=== PATIENT | male | born 1955 | race Two or more races ===

== ENCOUNTER 2016-12-23 06:15 | Inpatient (IN) | payer OTHER ==
[2016-12-23] VITALS (14 sets, daily range): BP systolic 109–152; BP diastolic 65–80
[~2016-12-23] VITALS: Ht 165.1 cm; Wt 77.1 kg
[2016-12-23] MEDS ORDERED: METFORMIN HCL500 M1 ORAL (06:37)
[2016-12-23] MEDS ORDERED: ceFAZolin 2gm/50ml Premix 50 ML IVPB ONE (07:00)
[2016-12-23] MEDS ORDERED: ceFAZolin sod 2 GM in D5W 110 ML IVP ONE (07:00)
[2016-12-23] MEDS ORDERED: Thrombin 5000 units TOPIC ONE ×2 (07:17→12:03)
[2016-12-23] MEDS ORDERED: Bupivacaine w/Epi 0.5% 30ml Vial INJ ONE (07:18)
[2016-12-23] MEDS ORDERED: Heparin 5000 units/ml inj ONE (07:18)
[2016-12-23] MEDS ORDERED: Gelfoam Absorbable 1gm powder pkt TOPIC ONE ×2 (07:19→12:10)
[2016-12-23] MEDS ORDERED: Bacitracin 50000 Units Vial ONE (07:19)
[2016-12-23] MEDS ORDERED: Thrombin 5000 units spray kit TOPIC ONE ×2 (07:19→12:03)
[2016-12-23] MEDS ORDERED: LR 1000ml ONE (08:30)
[2016-12-23] MEDS ORDERED: NS Irrig 1000ml ONE (08:30)
[2016-12-23] MEDS ORDERED: fentaNYL 100 mcg/2 mL IV ONE (08:30)
[2016-12-23] MEDS ORDERED: Propofol 10mg/ml 100ml btl IV ONE (08:30)
[2016-12-23] MEDS ORDERED: Zemuron 50mg/5ml Inj IV ONE (08:30)
[2016-12-23] MEDS ORDERED: Sterile Water Irrig 1000ml IRRIG ONE (08:30)
[2016-12-23] MEDS ORDERED: Midazolam 2mg/2ml Inj ONE (08:30)
--- NOTE | 2016-12-23 08:48 | Anethesia Preoperative Eval ---
Anesthesia Pre-op PMH/ROS General Date of Evaluation: Dec 23, 2016 Time of Evaluation: 08:00 Anesthesiologist: Kellen ASA Score: ASA 3 Mallampati Score Class I : Soft palate, uvula, fauces, pillars visible Class II: Soft palate, uvula, fauces visible Class III: Soft palate, base of uvula visible Class IV: Only hard plate visible Mallampati Classification: Class II Surgeon: Kelli Diagnosis: Lumbar radiculopaphy Surgical Procedure: ALIF, PLIF Family History: no anesthesia problems Allergies: Coded Allergies: No Known Allergies (Unverified , 12/22/16) Medications: see eMAR Past Medical History Cardiovascular: Denies: CAD, HTN, DC, arrhythmia, other, valve dz Pulmonary: Denies: COPD, RADHA, asthma, other Gastrointestinal/Genitourinary: Denies: CRI, ESRD, GERD, other Neurologic/Psychiatric: Denies: CVA, TIA, dementia, depression/anxiety, other Endocrine: Reports: DM, Denies: hypothyroidism, other, steroids HEENT: Denies: [place] (L), [place] (R), cataract (L), cataract (R), glaucoma, other Hematology/Immune: Denies: DVT, anemia, bleeding disorder, other Musculoskeletal/Integumentary: Denies: DDD, DJD, OA, RA, edema, other PMH Narrative: DM PSxH Narrative: Cholecystectomy Anesthesia Pre-op Phys. Exam Physician Exam Last Vital Signs Date Time Temp Pulse Resp B/P Pulse Ox O2 Delivery O2 Flow Rate FiO2 12/23/16 06:50 98.3 74 18 140/75 98 Room Air Constitutional: NAD Neurologic: CN 2-12 intact Cardiovascular: RRR, no M/R/G Respiratory: CTA Gastrointestinal: S/NT/ND Airway Exam Mallampati Score: Class II MO: full ROM: full Dentures: lower, upper Anesthesia Pre-op A/P Labs WNL Accucheck 114 Studies Pre-op Studies: EKG - NSR Risk Assessment & Plan Assessment: Diabetic male for ALIF, PLIF L5-S1 Plan: GETA, SedLine Status Change Before Surgery: No Pre-Antibiotics Drug: Ancef Given Within 1 Hr of Incision: Yes Time Given: 08:45 TO PEÑA M.D. Dec 23, 2016 08:48
--- NOTE | 2016-12-23 08:48 | Immediate Post-Op Evaluation ---
Immediate Post-Op Evalulation Immediate Post-Op Evalulation Procedure: ALIF, PLTAMMY Date of Evaluation: Dec 23, 2016 Time of Evaluation: 14:52 IV Fluids: 2800 Estimated Blood Loss: 250 Urinary Output: 100 Blood Pressure Systolic: 109 Blood Pressure Diastolic: 66 Pulse Rate: 92 Respiratory Rate: 18 O2 Sat by Pulse Oximetry: 100 Temperature (Fahrenheit): 97.5 Pain Score (1-10): 0 Nausea: No Vomiting: No Complications No complication Patient Status: awake, patent, extubated, none Hydration Status: adequate Drug: Ancef Given Within 1 Hr of Incision: Yes Time Given: 08:45 TO PEÑA M.D. Dec 23, 2016 08:48
[2016-12-23] MEDS ORDERED: LR 1000ml 1,000 ML IVLG SCH (09:41)
[2016-12-23] MEDS ORDERED: LR 1000ml 1,000 ML IV SCH (09:45)
[2016-12-23] MEDS ORDERED: Meperidine 25mg/0.5ml Inj (FOR RIGORS ONLY) IV PRN (09:45)
[2016-12-23] MEDS ORDERED: LORazepam Inj 2mg/ml 1ml IV PRN (09:45)
[2016-12-23] MEDS ORDERED: Hydromorphone 0.5mg/0.5ml inj IVP PRN (09:45)
[2016-12-23] MEDS ORDERED: DiphenhydrAMINE 50mg/ml Inj IVP PRN (09:45)
--- NOTE | 2016-12-23 09:49 | Pre-Procedure Note/Attestation ---
Pre-Procedure Note/Attestation Complete Prior to Procedure Procedure Narrative: L5S1 ant / post fusion with decompression Indications for Procedure Pre-Operative Diagnosis: L5S1 instable spondylolisthesis with BLE L>R radiculopathy Attestation I attest that I discussed the nature of the procedure; its benefits; risks and complications; and alternatives (and the risks and benefits of such alternatives ), prior to the procedure, with the patient (or the patient's legal utility sales representative). I attest that, if there was a reasonable possibility of needing a blood transfusion, the patient (or the patient's legal utility sales representative) was given the [facility] standardized written summary, pursuant to the Alexander Zahra Blood Safety Act ([place] Health and Safety Code # 1645, as amended). I attest that I re-evaluated the patient just prior to the surgery and that there has been no change in the patient's H&P, except as documented below: ROC RODRIGUEZ Dec 23, 2016 09:49
--- NOTE | 2016-12-23 09:51 | Brief Operative Note ---
Immediate Post Operative Note Operative Note Pre-op Diagnosis: L5S1 instable spondylolisthesis with BLE L>R radiculopathy Procedure: L5S1 ant post fusion with L decompression Post-op Diagnosis: same as pre-op Findings: consistent w/pre-op dx studies Surgeon: jose f Additional Surgeons: cely Anesthesiologist: cary Anesthesia: general Specimen: none Complications: none Condition: stable Estimated Blood Loss: volume - 250 Drains: none Implant(s) used?: Yes - alphateck cage/plate/ pedicle screws ROC RODRIGUEZ Dec 23, 2016 09:51
[2016-12-23] MEDS ORDERED: Norco 5mg/325mg tab ORAL PRN (10:00)
[2016-12-23] MEDS ORDERED: traMADol 50mg tab ORAL PRN (10:00)
[2016-12-23] MEDS ORDERED: Norco 7.5mg/325mg tab ORAL PRN ×2 (10:00)
[2016-12-23] MEDS ORDERED: HYDROmorphone 1mg/ml Carpuject SUBQ PRN (10:00)
[2016-12-23] MEDS ORDERED: Metoclopramide 10mg/2ml Inj IVP PRN (10:00)
--- NOTE | 2016-12-23 15:54 | Diagnostic Imaging Report ---
Indications: lumbar anterior-posterior fusion for low back and bilateral lower extremity pain Technique: Above procedure including fluoroscopy performed by Dr. Pereira. Portable intraoperative AP, PA, and lateral spot film images of lower lumbar spine obtained. Total fluoroscopy time 69.8 seconds. Dose area product 0.97 mgy-meter squared Findings: Comparison: None Initial image demonstrates localizing needle overlying the L5-S1 disc space. L5 vertebral body is subluxed anteriorly on S1 by less than 1 cm. L5-S1 disc space narrowing with marginal osteophyte formation. Subsequent images demonstrate placement of fusion hardware within and across the anterior margins of the L5-S1 disc space, then placement of bilateral pedicle screws at L5 and S1, bridged by longitudinal rods bilaterally. IMPRESSION: Intraoperative changes as described
[2016-12-23] MEDS: D5 1/2NS 1,000 ML IV SCH ×2 (17:25→23:59)
[2016-12-23] MEDS: ceFAZolin sod 1 GM in D5W 55 ML IV SCH (17:26)
[2016-12-23] MEDS: Pericolace tab ORAL SCH (18:00)
[2016-12-23] MEDS: Docusate 100mg cap ORAL SCH (18:00)
--- NOTE | 2016-12-23 18:15 | Operative Note - Dictated ---
DATE OF OPERATION: 12/23/2016 SURGEON: Sorin Pereira M.D. VASCULAR ACCESS SURGEON: Nitish Baires M.D. ANESTHESIOLOGIST: Alexander Foreman M.D. ANESTHESIA TYPE: General endotracheal anesthesia. PREOPERATIVE DIAGNOSIS: Spondylolisthesis, unstable L5-S1 with bilateral, left greater than right lower extremity radiculopathy. POSTOPERATIVE DIAGNOSIS: Spondylolisthesis, unstable L5-S1 with bilateral, left greater than right lower extremity radiculopathy. PROCEDURE: 1. Wide and radical anterior diskectomy and reduction of spondylolisthesis. 2. Placement of interbody fusion device (PEEK cage and BMP and [place] Putty). 3. Anterior instrumentation L5-S1. 4. Use of fluoroscopy. INDICATIONS: The patient is a 61-year-old with fairly significant radiculopathic pain primarily in the left side, but also at times in the right side. He has a very unstable spondylolisthesis. Surgical intervention was discussed and he elected to proceed. RISK NOTE: The patient was explained in detail the risks and benefits of surgery to include, but not be limited to those of bleeding, infection, damage to nerves, vessels, tendons, anesthetic risk, allergic reaction, aspiration, and possibly . The patient understood and wished to proceed. OPERATIVE PROCEDURE IN DETAIL: The patient was taken to the operative suite. After general endotracheal anesthesia was obtained, Cooper catheter was placed. The patient was positioned supine on to a radiolucent table. Vascular team then proceeded to perform an anterior retroperitoneal approach to the L5-S1 interspace. This will be dictated separately. Once the spine surgical team came in, the anterior vertebral body was already exposed. Retractors were put in place. A scalpel was utilized to perform an annulotomy anteriorly. Endplates and Deneen were used to elevate the cartilaginous endplate from the bony endplate. Wide and radical diskectomy was performed using combination of Rongeurs, pituitaries, Kerrison, and curette. The dissection was carried out all the way to the posterior anulus. The neural foramen were thoroughly decompressed bilaterally. At this point, endplate preparation was achieved. A 12 mm trial was put into place and noted to have good distraction of the disc without excessive over distraction. There was yazdanism of disk height as well as the normal anatomy. At this juncture, the appropriate sized PEEK cage was centrally packed with Delisa as well as a small BMP. It was placed into the anterior aspect of the disk space with good bony apposition. The appropriate sized plate was then chosen, applied, and all four screw holes were serially drilled and the appropriate size 25 mm screws were applied. There were all torqued to the appropriate level. Copious irrigation was then performed. Decision was made to close. Closure will be dictated separately by Dr. Baires, the vascular surgeon. [facility] Hong Pereira DR: JUICE JOB#: [id number] CC: DENEEN
[2016-12-23] MEDS ORDERED: Chloraseptic Spray 20mL Bottle ORAL PRN (19:00)
[2016-12-23] MEDS ORDERED: HYDROmorphone 1mg/ml Carpuject IVP PRN (19:00)
[2016-12-23] MEDS ORDERED: Norco 10mg/325mg tab ORAL PRN (19:00)
[2016-12-23] MEDS ORDERED: PCA HYDROmorphone 1mg/ml 30 ML IV PRN (19:30)
[2016-12-23] MEDS ORDERED: Rate Change PCA 1 Each MISC PRN (19:30)
[2016-12-23] MEDS: Tamsulosin 0.4mg cap ORAL SCH (20:43)
[2016-12-23] MEDS ORDERED: Artificial Tears 1.4% Op Soln LEFT EYE PRN (20:45)
--- NOTE | 2016-12-23 21:15 | Consultation ---
DATE OF CONSULTATION: 12/23/2016 VASCULAR SURGERY CONSULTATION HISTORY OF PRESENT ILLNESS: The patient is a 61-year-old male, who was admitted to undergo anterior lumbar interbody fusion at L5-S1 as determined by his spine surgeon, Dr. Sorin Pereira. Typically, the patient had received my separate informed consent form at his home, but the patient does not recall receiving such . This separate informed consent form introduces me and explains my role in the approach for the anterior lumbar spine surgery. It also outlines the possible risks and complications including, but not limited to hemorrhage, need for blood transfusions, retrograde ejaculation, wound infection, bowel or ureter injury, arterial or venous injury or thrombosis, and the remote chance of etc. In addition, I telephoned the patient where the procedure was discussed. Today, he was seen in the preoperative holding area where he was given the separate informed consent form, which was reviewed with me and any questions were answered. He was shown the site of the incision. He had palpable bilateral dorsalis pedis pulses. He was 5 feet 5 inches tall, weighing approximately 170 pounds, giving him a BMI of 28. His hematocrit was 41 with a platelet count of 175,000. His INR was 0.9 with PTT of 28 seconds. The consent was signed once again with a nurse witness and signature as well and then placed into the chart. He fully understood and wished to proceed. There were no contraindications and we would proceed with the proposed operation. Nitish Baires M.D. DR: MARCELLO JOB#: [id number] CC:
--- NOTE | 2016-12-23 23:15 | Operative Note - Dictated ---
DATE OF OPERATION: 12/23/2016 OPERATION: 1. Muscle-sparing anterior abdominal retroperitoneal approach for anterior lumbar interbody fusion. 2. Plastic closure repair of abdominal wound. CO-SURGEONS: 1. Nitish Baires M.D. 2. Sorin Pereira M.D. ANESTHESIA: General. PREOPERATIVE DIAGNOSIS: Degenerative disc disease with spondylolisthesis, L5-S1. POSTOPERATIVE DIAGNOSIS: Degenerative disc disease with spondylolisthesis, L5-S1. DESCRIPTION OF PROCEDURE: Prior to surgery, I telephoned the patient where the procedure was discussed. As my usual protocol, the patient would typically have been sent my separate informed consent form to his home for review, but the patient reports not knowing whether he received it. However, again as my usual protocol, the patient was seen in the preoperative holding area where he was given my separate informed consent form, which introduced me and explained my role in the approach for the anterior lumbar spine surgery. It also outlined the possible risks and complications, including, but not limited to hemorrhage, need for blood transfusions, retrograde ejaculation, wound infection, bowel or ureter injury, arterial or venous injury or thrombosis, and the remote chance of , etc. This form was reviewed and all questions were answered. He was shown the site of the incision. He had palpable bilateral dorsalis pedis pulses. The consent was signed with a nurse witness and signature as well and then placed into the chart. He fully understood and wished to proceed. A preoperative vascular surgery consultation report was dictated. The patient was taken into the operating room and placed in a supine position. Using an endotracheal tube, he was placed under general anesthesia without difficulty. His abdomen was prepped and draped in the usual sterile manner. An appropriate time-out was obtained. A transverse incision was made in the left lower quadrant from the midline and carried down through the subcutaneous tissues down to the rectus fascia. Hemostasis was achieved using electrocautery. The rectus fascia was incised transversely and elevated off the anterior surface of the muscle for a distance of approximately 4 cm both caudad and cephalad. This would allow for retraction of the rectus muscle laterally. Later in the case, noted to obtain direct anterior-posterior approach to the anterior surface of the spine. The inferior epigastric vessels were identified and preserved. Laterally, the retroperitoneal space was entered down to the left psoas muscle. The left ureter was identified and protected as it was mobilized with the peritoneum more medially until the left iliac artery was identified. Deep self-retaining retractors such as the [place] and [place] were utilized to hold the abdominal wall and peritoneal contents in place while further dissection was carried out. Careful blunt dissection was carried out below the bifurcation of the iliac vessels with several medial branches of the iliac vein were taken between hemoclips and transected. The middle sacral artery was taken between hemoclips and transected. Careful blunt dissection was carried out to preserve the sympathetic chains laterally as well as the parasympathetic plexus, which lies anteriorly along the surface of the fifth lumbar vertebra. Further careful blunt dissection was utilized to expose the anterior surface of the multiple vertebral bodies and intervening disc space. Several malleable retractor blades were now placed in all quadrants with the rectus muscle now retracted laterally, which allowed exposure and direct anterior-posterior approach to the anterior surface of the spine. A needle was inserted into the appropriate disc space and an x-ray was taken to verify the exposure. The spine surgeon then proceeded to perform diskectomy and fusion with placement of a plate, which will all be dictated in a separate report by the spine surgeon, Dr. Pereira. Antibiotic irrigation had been carried out. The malleable retractors were removed. The integrity of the iliac vessels were then checked to make sure that there was no tear or thrombosis of the vein and that there was adequate flow through the artery with no evidence of spasm or thrombosis. A further check for hemostasis was made and the integrity of the ureter was verified. The peritoneum was allowed to return to its anatomical location and then the anterior rectus sheath approximated using continuous running suture of #1 Vicryl. The subcutaneous tissues were irrigated using dilute Betadine solution as well as antibiotic solution. Hemostasis noted to be achieved. Plastic closure repair of the abdominal wound was continued using 2-0 Vicryl followed by skin approximation using continuous subcuticular suture of 4-0 Monocryl. Steri-Strips were applied. Telfa OpSite dressing was applied. The sponge, pad, needle, and instrument counts reported as correct. Estimated blood loss was less than 50 mL. There were no complications during this procedure. At completion of the procedure, the patient had maintenance of strong palpable bilateral dorsalis pedis pulses and the pulse oximeter registered 100% on the left foot. The patient will remain in the operating room and undergo posterior instrumentation by the spine surgeon. Nitish Baires M.D. DR: MARCELLO JOB#: [id number] CC:
[2016-12-24] VITALS: BP 115/61
--- NOTE | 2016-12-24 00:45 | Operative Note - Dictated ---
DATE OF OPERATION: 12/23/2016 SURGEON: Sorin Pereira MD. INDEPENDENT AGENT MUSIC EDUCATION: None. ANESTHESIA: General endotracheal anesthesia. ANESTHESIOLOGIST: Alexander Foreman M.D. PREOPERATIVE DIAGNOSES: 1. Unstable spondylolisthesis with radiculopathy, left greater than right. 2. Status post prior anterior fusion and fixation necessitating backup fusion of the posterior site due to the instability. POSTOPERATIVE DIAGNOSES: 1. Unstable spondylolisthesis with radiculopathy, left than right. 2. Status post prior anterior fusion and fixation necessitating backup fusion of the posterior site due to the instability. OPERATION PERFORMED: 1. Posterior spinal fusion, L5-S1. 2. Instrumentation using pedicle screws, L5 and S1. 3. Use of local autograft for fusion. 4. Use of allograft Bacterin bone and Delisa putty. 5. Use of operating microscope. 6. Neurodiagnostic monitoring. 7. SPECIAL NOTE: Case markedly complicated due to the patient's anatomy and spina bifida. 8. Left-sided hemilaminectomy and Vasquez resection, L5-S1. INDICATIONS: The patient is a very pleasant 61-year-old with fairly severe and intractable back pain with pain radiating down both lower extremities. He has spinal instability at the L5-S1 level with a grade 1-2 spondylolisthesis. An anterior reconstruction was already performed earlier in the day due to the unstable nature of the anatomy. Posterior and anterior fixation was recommended. The patient does have marked anomalies at the L5-S1 level with aberrant pedicle/lamina requiring additional time for safe instrumentation. RISK NOTE: The patient was explained in detail the risks and benefits of surgery to include, but not be limited to those of bleeding, infection, damage to nerves, vessels, tendons, anesthetic risk, allergic reaction, aspiration, and possibly . The patient understood wished to proceed. OPERATIVE PROCEDURE IN DETAIL: Under benefits of general anesthesia, the patient was prepped, turned prone onto the Burt frame. All bony prominences were well padded. Back was prepped and draped in the usual sterile fashion. Under fluoroscopic guidance, a midline incision was marked out L3 through S1. The incision was injected with Marcaine with epinephrine. Subperiosteal dissection was carried out at L4 and at S1. Care was taken at L5 due to the patient's spina bifida and abnormal laminar structures. Under benefits of fluoroscopic guidance and local anatomic landmarks, pedicle screw placement was first placed on the right side at L5 and S1. Copious irrigation was performed. The screw placement was placed using standard technique by first drilling the outer cortex using a gearshift probe to identify the pedicle and then ultimately used a pedicle sound, measured, Tapped, and applied the appropriate size pedicle screws. This was performed bilaterally at L5 and S1. Please note that pedicle at S1 on the left was anatomically much lower. Once all screws were placed, pedicle screw stimulation was performed and once noted to be appropriate, the appropriate sized rods and locking caps were applied and torqued to the appropriate level. At this point, operating microscope was brought into place. The lamina at L5 was drilled as well as Vasquez resection using high-power microscope by using a high-speed drill, curette, and Kerrison punch. The nerve root was identified and probed through the foramen and noted to be patent and free. At this point, copious irrigation was performed. Please note that prior to final daryn placement, decortication of the transverse process of L5 as well as the sacral ala was performed bilaterally and a large piece of Bacterin bone as well as Delisa putty was placed into the posterolateral gutters. Once satisfied with bone grafting as well as fixation and hardware placement, decision was made to close. Medium-size Hemovac drain was placed deep to the fascia. Fascia was repaired using #1 Vicryl, subcutaneous closure using 2-0 Vicryl. Dermabond was applied. Steri-Strip was applied to the drain. At the time of this dictation, the patient was awaiting extubation. Sorin Hong Pereira DR: TEODORA JOB#: [id number] CC: DENEEN
[2016-12-24 04:00] VITALS: BP 113/66
[2016-12-24] MEDS: PCA shift volume MISC SCH ×2 (07:01→19:21)
[2016-12-24 07:27] LABS: BASOPHILS % (AUTO) 0.4 % (0.0-2.0); EOSINOPHILS % (AUTO) 0.7 % (0.0-3.0); MEAN CORPUSCULAR HEMOGLOBIN 32.1 PG (27.0-31.0); MEAN CORPUSCULAR HGB CONC 36.4 G/DL (32.0-36.0); MEAN CORPUSCULAR VOLUME 88 FL (80-99); MONOCYTES % (AUTO) 8.1 % (1.0-10.0); NEUTROPHILS % (AUTO) 82.9 % (45.0-75.0); PLATELET COUNT 128 K/UL (150-450); RED BLOOD COUNT 3.79 M/UL (4.70-6.10); RED CELL DISTRIBUTION WIDTH 11.4 % (11.6-14.8); WHITE BLOOD COUNT 7.5 K/UL (4.8-10.8)
[2016-12-24] MEDS: Docusate 100mg cap ORAL SCH ×2 (07:43→18:08)
[2016-12-24] MEDS: ceFAZolin sod 1 GM in D5W 55 ML IV SCH ×3 (07:43)
[2016-12-24] MEDS: Pericolace tab ORAL SCH ×2 (07:43→18:08)
[2016-12-24 08:00] VITALS: BP 117/62
--- NOTE | 2016-12-24 08:33 | Orthopedic Spine Progress Note ---
Ortho Spine - Progress Note Subjective Symptoms: c/o post-op back pain, improved - as compared to pre-op Objective Vital Signs: Last 24 Hour Vital Signs Date Time Temp Pulse Resp B/P (MAP) Pulse Ox O2 Delivery O2 Flow Rate FiO2 12/24/16 08:00 18 12/24/16 04:00 98.9 103 19 113/66 99 Room Air 12/24/16 04:00 16 12/24/16 00:00 97.9 90 19 115/61 95 Nasal Cannula 2.0 12/24/16 00:00 16 12/23/16 21:51 16 12/23/16 21:21 16 12/23/16 20:51 16 12/23/16 20:42 98.1 12/23/16 20:36 16 12/23/16 20:21 16 12/23/16 20:14 98.1 80 20 131/66 99 Nasal Cannula 2.0 12/23/16 20:06 18 12/23/16 19:13 Nasal Cannula 2.0 28 12/23/16 19:13 99 Nasal Cannula 2.0 28 12/23/16 18:00 97.7 78 16 129/65 99 Nasal Cannula 2.0 12/23/16 16:50 97.8 81 16 128/65 99 Nasal Cannula 2.0 12/23/16 16:45 97.8 82 16 135/68 100 Nasal Cannula 12/23/16 16:30 83 15 139/77 100 Nasal Cannula 12/23/16 16:15 80 16 144/78 100 Nasal Cannula 12/23/16 16:00 83 18 150/75 100 Nasal Cannula 12/23/16 15:45 76 14 140/77 100 Nasal Cannula 12/23/16 15:30 78 16 152/80 100 Nasal Cannula 12/23/16 15:15 72 18 139/73 100 Nasal Cannula 12/23/16 15:00 77 15 142/72 100 Simple Mask 12/23/16 14:50 81 14 137/70 100 Simple Mask 12/23/16 14:45 92 18 100 12/23/16 14:40 97.5 92 18 109/66 100 Simple Mask Wound: clean, intact Drains: hemovac Neuro Status: normal Assessment Procedure Performed: L5S1 ant post fusion with L decompression Plan Plan: PT, pain management, continue antibiotics - until drain removed, continue drain RCO RODRIGUEZ Dec 24, 2016 08:33
[2016-12-24] MEDS ORDERED: D5 1/2NS 1000ml IV ONE (08:43)
[2016-12-24] MEDS ORDERED: Tubing IV Secondary IV ONE (08:43)
[2016-12-24] MEDS ORDERED: D5NS 1000ml IV ONE (08:43)
--- NOTE | 2016-12-24 09:21 | General Progress Note ---
Assessment/Plan Assessment/Plan 1. Unstable spondylolisthesis with radiculopathy, left than right. 2. Status post prior anterior fusion and fixation necessitating backup fusion of the posterior site due to the instability. 3. Posterior spinal fusion, L5-S1. PLAN 1. incentive spirometry 2. SCD 3. PT evaluation and therapy 4. Hydration 5. Pain management 6. discharge once stable with outpatient follow up impression, plan, and exam edited and reviewed in detail care discussed with RN Subjective Allergies: Coded Allergies: No Known Allergies (Unverified , 12/22/16) Subjective asked to follow up medically Objective Last 24 Hour Vital Signs Date Time Temp Pulse Resp B/P (MAP) Pulse Ox O2 Delivery O2 Flow Rate FiO2 12/24/16 08:00 99.0 81 19 117/62 98 Nasal Cannula 12/24/16 08:00 18 12/24/16 04:00 98.9 103 19 113/66 99 Room Air 12/24/16 04:00 16 12/24/16 00:00 97.9 90 19 115/61 95 Nasal Cannula 2.0 12/24/16 00:00 16 12/23/16 21:51 16 12/23/16 21:21 16 12/23/16 20:51 16 12/23/16 20:42 98.1 12/23/16 20:36 16 12/23/16 20:21 16 12/23/16 20:14 98.1 80 20 131/66 99 Nasal Cannula 2.0 12/23/16 20:06 18 12/23/16 19:13 Nasal Cannula 2.0 28 12/23/16 19:13 99 Nasal Cannula 2.0 28 12/23/16 18:00 97.7 78 16 129/65 99 Nasal Cannula 2.0 12/23/16 16:50 97.8 81 16 128/65 99 Nasal Cannula 2.0 12/23/16 16:45 97.8 82 16 135/68 100 Nasal Cannula 12/23/16 16:30 83 15 139/77 100 Nasal Cannula 12/23/16 16:15 80 16 144/78 100 Nasal Cannula 12/23/16 16:00 83 18 150/75 100 Nasal Cannula 12/23/16 15:45 76 14 140/77 100 Nasal Cannula 12/23/16 15:30 78 16 152/80 100 Nasal Cannula 12/23/16 15:15 72 18 139/73 100 Nasal Cannula 12/23/16 15:00 77 15 142/72 100 Simple Mask 12/23/16 14:50 81 14 137/70 100 Simple Mask 12/23/16 14:45 92 18 100 12/23/16 14:40 97.5 92 18 109/66 100 Simple Mask Laboratory Tests 12/24/16 05:40: White Blood Count 7.5, Red Blood Count 3.79L, Hemoglobin 12.2L, Hematocrit 33.4L , Mean Corpuscular Volume 88, Mean Corpuscular Hemoglobin 32.1H, Mean Corpuscular Hemoglobin Concent 36.4H, Red Cell Distribution Width 11.4L, Platelet Count 128L, Mean Platelet Volume 7.0, Neutrophils (%) (Auto) 82.9H, Lymphocytes (%) (Auto) 8.0L, Monocytes (%) (Auto) 8.1, Eosinophils (%) (Auto) 0.7, Basophils (%) (Auto) 0.4 Height (Feet): 5 Height (Inches): 5.00 Weight (Pounds): 170 Objective WDWN NAD clear breath sounds bilaterally without rhonchi or wheeze [id number] without MRG NABS nontender no HSM no CCE nonfocal VU ZAMORA Dec 24, 2016 09:21
[2016-12-24 12:00] VITALS: BP 110/59
[2016-12-24] MEDS: D5 1/2NS 1,000 ML IV SCH ×2 (12:50→23:27)
--- NOTE | 2016-12-24 15:22 | 48 Hour Post Anesthesia Eval ---
Post Anesthesia Evaluation Procedure: ALIF, PLIF Date of Evaluation: Dec 24, 2016 Time of Evaluation: 15:20 Blood Pressure Systolic: 118 0: 56 Pulse Rate: 64 Respiratory Rate: 20 Temperature (Fahrenheit): 97.9 O2 Sat by Pulse Oximetry: 98 Airway: patent Nausea: No Vomiting: No Pain Intensity: 2 Hydration Status: adequate Cardiopulmonary Status: stable Mental Status/LOC: patient returned to baseline Follow-up Care/Observations: n/a Post-Anesthesia Complications: none Follow-up care needed: N/A MARY NOYOLA M.D. Dec 24, 2016 15:22
[2016-12-24 16:00] VITALS: BP 116/62
[2016-12-24] MEDS: ceFAZolin sod 1 GM in D5W 55 ML IVPB SCH ×2 (16:40→23:27)
[2016-12-24 20:00] VITALS: BP 125/66
[2016-12-24] MEDS: Tamsulosin 0.4mg cap ORAL SCH (21:00)
--- NOTE | 2016-12-24 21:01 | Consultation ---
DATE OF CONSULTATION: 12/23/2016 CONSULTING PHYSICIAN: Domenic Culver M.D. REFERRING PHYSICIAN: Sorin Pereira M.D. REASON FOR CONSULTATION: Acute pain consult. Dear Dr. Pereira, Thank you kindly for consulting me to evaluate and render an opinion as to how to proceed in the management of the patient's acute postoperative lumbar spine pain, after extensive lumbar spine fusion surgery and instrumentation via the anterior-approach and posterior-approach. The patient is a 61-year-old gentleman, who injured his back after a work-related injury. After 2 days of extensive lumbar spine fusion surgery, he complained significant postoperative discomfort. He called me for acute pain consultation to help optimize his pain control. I saw the patient at bedside with his . I discussed the case with yourself, Dr. Pereira along with the nurse RN, Jessica. I reviewed multiple records from today's surgery at [facility] including multiple records from the surgery suite, from the intraoperative anesthesiologist, from the recovery room, from the pharmacy, and nursing department. I have spent over 75 minutes in consultation with an additional 30 minutes in the medical record review. PAST MEDICAL HISTORY: 1. Acute postoperative lumbar spine pain status post lumbar spine fusion surgery with instrumentation by Dr. Sorin Pereira in December 2016. 2. Work-related injury. 3. Diabetes. PAST SURGICAL HISTORY: Appendectomy. MEDICATIONS: At home, diabetes medications and NSAIDs. SOCIAL HISTORY: The patient is accompanied at the bedside by his . He denies tobacco, alcohol, or illicit drug use. FAMILY HISTORY: Diabetes. ALLERGIES: No known drug allergies. REVIEW OF SYSTEMS: Per Thaddeus Prakash M.D. PHYSICAL EXAMINATION: GENERAL: Age 61. Height 5 feet 5 inches, weight 171 pounds, and body mass index is 28. VITAL SIGNS: Afebrile, pulse 78, respirations 16, blood pressure 129/65, and oxygen saturation 99% on supplemental oxygen. NEUROLOGIC: Per Dr. Pereira. The patient is moving all extremities x4 with 5/5 dorsiflexion, 5/5 plantar flexion, bilateral dorsiflexion of bilateral lower extremities. Alert and orient x3. Straight leg raising deferred secondary to pain. HEENT: Shows thick flores. No Peace's palsy. No Roxanna syndrome. No carotid bruits. CHEST: Clear to auscultation. HEART: Regular rate and rhythm. ABDOMEN: Mildly distended by incision area with no rebound or guarding apparent. Cooper catheter in place. BACK: Lumbar spine shows Hemovac drain holding suction and pain by incision area with minimal paraspinal muscle spasms noted. GENITOURINARY: Deferred. DIAGNOSTIC TESTING: A 12-lead EKG shows normal sinus rhythm, ventricular rate 81, no evidence for acute cardiac ischemia. Preoperative chest x-ray shows no acute cardiopulmonary disease dated 12/15/2016. Pulmonary function testing shows normal spirometry on 12/15/2016. LABORATORY STUDIES: On 12/15/2016 shows glucose 114. Sodium 141, potassium 4.3, chloride 103, bicarbonate 30, BUN 13, creatinine 0.6, calcium 9.9. Phosphorus 3.7. Total protein 6.9. Albumin 4.5. AST 18, ALT 26, alkaline phosphatase 47. LDH 165.1. Total bilirubin 0.6. Uric acid 4.5. Magnesium 2.0. Amylase 155. TSH 1.6. Hemoglobin A1c normal at 5.3. White count 6, hematocrit 41, platelets 175,000. INR 0.9 and PTT 28. IMPRESSION: 1. Acute postoperative lumbar spine pain status post lumbar spine fusion surgery with instrumentation by Dr. Sorin Pereira in December 2016. 2. Work-related injury. 3. Diabetes. TREATMENT AND RECOMMENDATIONS: To help with this patient's pain control, I devised the following analgesic plan. After review of the patient's anesthetic record, it is apparent that the patient has tolerated Dilaudid intraoperatively without any postoperative nausea or other symptoms. Therefore, I would continue him with Dilaudid. I have ordered a breakthrough dose of Dilaudid 0.5 mg intravenously for breakthrough pain. I have started him on a Dilaudid STEEL HANDLER at 0.2 mg given as a 12-minute lockout and no underlying interval basal rate. As the patient's diet is advanced, I would trial him on oral hydrocodone 10/325 mg tablets. I will start him on half a tablet every 3 hours p.r.n. for mild pain. The patient states that he did not use muscle relaxant in the past. I will hold off on muscle relaxants as well as benzodiazepines at this time to avoid the potentiation of respiratory depression. I would narcotics at that time as primary analgesia. In case of any nausea symptoms, I have ordered Zofran 4 mg intravenously every 4 hours as a first-line antiemetic agent. I will empirically place the patient on Protonix 40 mg nightly with the p.r.n. dose of Mylanta 30 mL q.6 h. p.r.n. for any GERD symptom exacerbation. In this middle-aged gentleman, I will start him on Flomax 0.1 mg nightly to help reduce the risk for urinary retention. He has had the Cooper catheter removed. I have added Chloraseptic spray to help with any sore throat complaints. In case of any itching symptoms, I have ordered Benadryl 20 mg q.6 h. p.r.n. A comprehensive review of the medical record was performed. Records reviewed include multiple records from today's date of surgery at [facility] including multiple records from the surgery suite including, surgical invasive implant log, 24-hour medical/surgical flow sheet, initial nursing assessment, consent for surgical treatment, consent for anesthesia, consent for blood products, guidelines for prophylactic antibiotics, guidelines for DVT prophylaxis, anesthesia record, pre and post anesthesia evaluation record. Further record review included preoperative history and physical by Dr. Thaddeus Prakash on 12/15/2016 along with laboratory studies, 12-lead EKG, pulmonary function testing, and chest x-ray. Domenic Culver M.D. DR: Daniel JOB#: [id number] CC:
[2016-12-25 04:00] VITALS: BP 150/71
--- NOTE | 2016-12-25 06:15 | Progress Note ---
DATE: 12/24/2016 ACUTE PAIN MANAGEMENT PHYSICIAN PROGRESS NOTE MEDICATIONS: Medication administration record reviewed. Medications include Flomax, Keppra, Colace, Chloraseptic, Protonix, ENGINEERING DESIGNER Dilaudid, breakthrough Dilaudid, [place], Benadryl, Catapres, Mylanta, Artificial Tears, and Tylenol. LABORATORY STUDIES: From today, 12/24/2016 shows white count normal at 8, hematocrit 33, and platelets 128,000. Vital signs, afebrile, pulse is 64, respirations 20, oxygen saturation 98%, and blood pressure 110/59. I saw the patient at bedside. I discussed the case with the nurse RN, Daxa. The patient's is at the bedside providing good social support. The surgeon, Dr. Pereira evaluated the patient earlier this morning. Dr. Pereira decided to keep the indwelling lumbar spine drain catheter in place for continued drainage. The patient ambulated twice with physical therapy already today and I have asked the nursing team to leave a front wheel walker in the room to encourage the patient to ambulate further later today. The physical therapy did permit the patient to ambulate with nursing assistance. I did encourage the patient to ambulate later today and not to wait and remain in bed for 18 hours until physical therapy returns for the next morning session. The patient does have sequential compression pneumatic devices in place for DVT prophylaxis. I would encourage aggressive incentive spirometer usage to encourage good pulmonary toilet. The patient has been using a ENGINEERING DESIGNER Dilaudid unit somewhat. I will discontinue the ENGINEERING DESIGNER unit tomorrow morning. The patient does have breakthrough doses of [place] and Dilaudid to help transition off of the ENGINEERING DESIGNER unit. I the the prescription already and encouraged the to dropout prescription soon at an outpatient pharmacy to avoid any delays in dispensing of his medication. After the patient's anterior approach surgery following passing positive flatus, je does not have much of an appetite, but is not nauseated or vomiting. I did encourage liquids and oral intake. The surgeon did advance his diet since he is passing positive flatus. The Cooper catheter was removed. I ordered Flomax last night and with this dosing, the patient has not had any problems with urinary retention so far. Domenic Culver M.D. DR: GADIEL JOB#: [id number] CC:
[2016-12-25] MEDS: ceFAZolin sod 1 GM in D5W 55 ML IVPB SCH (07:49)
--- NOTE | 2016-12-25 08:09 | Orthopedic Spine Progress Note ---
Ortho Spine - Progress Note Subjective Symptoms: c/o post-op back pain, improved - as compared to pre-op Objective Vital Signs: Last 24 Hour Vital Signs Date Time Temp Pulse Resp B/P (MAP) Pulse Ox O2 Delivery O2 Flow Rate FiO2 12/25/16 04:00 98.9 114 18 150/71 97 Room Air 12/25/16 04:00 18 12/24/16 20:00 98.4 104 18 125/66 99 Nasal Cannula 2.0 12/24/16 20:00 18 12/24/16 19:55 Nasal Cannula 2.0 28 12/24/16 19:55 99 Nasal Cannula 2.0 28 12/24/16 16:00 98.9 96 19 116/62 97 Nasal Cannula 12/24/16 16:00 18 12/24/16 15:22 64 20 98 12/24/16 12:00 97.7 98 19 110/59 99 Room Air 12/24/16 12:00 19 Wound: clean, intact Drains: hemovac Neuro Status: normal Assessment Procedure Performed: L5S1 ant post fusion with L decompression Plan Plan: PT, pain management, d/c antibiotics, d/c drain, discharge plan ROC RODRIGUEZ Dec 25, 2016 08:09
[2016-12-25 08:31] VITALS: BP 136/73
[2016-12-25] MEDS: Pericolace tab ORAL SCH ×2 (08:37→18:19)
[2016-12-25] MEDS: Docusate 100mg cap ORAL SCH ×2 (08:37→18:19)
[2016-12-25] MEDS: D5 1/2NS 1,000 ML IV SCH (08:37)
[2016-12-25 12:21] VITALS: BP 151/90
[2016-12-25 16:17] VITALS: BP 139/90
--- NOTE | 2016-12-25 16:32 | General Progress Note ---
Assessment/Plan Assessment/Plan 1. Unstable spondylolisthesis with radiculopathy, left than right. 2. Status post prior anterior fusion and fixation necessitating backup fusion of the posterior site due to the instability. 3. Posterior spinal fusion, L5-S1. PLAN 1. incentive spirometry 2. SCD 3. PT evaluation and therapy 4. Hydration 5. Pain management 6. discharge once stable with outpatient follow up 7. advance diet impression, plan, and exam edited and reviewed in detail care discussed with RN Subjective Allergies: Coded Allergies: No Known Allergies (Unverified , 12/22/16) Subjective improved overall Objective Last 24 Hour Vital Signs Date Time Temp Pulse Resp B/P (MAP) Pulse Ox O2 Delivery O2 Flow Rate FiO2 12/25/16 16:23 98 Room Air 12/25/16 16:23 Room Air 12/25/16 16:17 97.1 79 20 139/90 98 Room Air 12/25/16 12:21 98.9 110 20 151/90 96 Room Air 12/25/16 08:31 98.4 108 20 136/73 95 Room Air 12/25/16 04:00 98.9 114 18 150/71 97 Room Air 12/25/16 04:00 18 12/24/16 20:00 98.4 104 18 125/66 99 Nasal Cannula 2.0 12/24/16 20:00 18 12/24/16 19:55 Nasal Cannula 2.0 28 12/24/16 19:55 99 Nasal Cannula 2.0 28 Intake and Output 12/25/16 12/26/16 19:00 07:00 Intake Total 680 ml Balance 680 ml Intake Oral 280 ml IV Total 400 ml # Voids 1 Height (Feet): 5 Height (Inches): 5.00 Weight (Pounds): 170 Objective WDWN NAD clear breath sounds bilaterally without rhonchi or wheeze [id number] without MRG NABS nontender no HSM no CCE nonfocal VU ZAMORA Dec 25, 2016 16:32
[2016-12-25 20:27] VITALS: BP 146/92
[2016-12-25] MEDS: Tamsulosin 0.4mg cap ORAL SCH (21:25)
[2016-12-26 00:23] VITALS: BP 155/90
[2016-12-26 04:00] VITALS: BP 159/87
--- NOTE | 2016-12-26 04:16 | Progress Note ---
DATE: 12/25/2016 ACUTE PAIN MANAGEMENT PHYSICIAN PROGRESS NOTE MEDICATIONS: Medication administration record reviewed. Medications include Tylenol, Mylanta, artificial tears, Catapres, Benadryl, Colace, [place], Dilaudid, Zofran, Protonix, Chloraseptic, Dora-Colace, and Flomax. LABORATORY STUDIES: Laboratory studies from yesterday 12/24/2016 shows white count 7, hematocrit 33, and platelets 128,000. Vital signs, afebrile, pulse 104, respirations 20, blood pressure 136/73, and oxygen saturation 95% on room air. I saw the patient at the bedside. Earlier this morning, Dr. Pereira, the surgeon, removed the indwelling lumbar spine drain catheter. The patient has been ambulating adequately out of bed. The patient is breathing comfortably on room air. The patient denies any shortness breath or chest pain. The patient's did drop-off the prescription, which I left for outpatient pain medicines. I stopped the SIDEHAND earlier this morning and for the past five hours, the patient's pain has been tolerable using p.r.n. pain medication regimen as listed above. I will continue the current analgesic plan. The patient is passing positive flatus and has been advancing his diet well. I would continue the patient advancing with physical therapy as tolerated. We will await a bowel movement from the patient after his anterior lumbar interbody fusion procedure. The patient was encouraged to continue using incentive spirometer aggressively for good pulmonary toilet. While in bed, the patient should continue with sequential compression devices for DVT prophylaxis. I expect discharge for tomorrow with his at home, if Dr. Pereira permits. Domenic Culver M.D. DR: GADIEL JOB#: [id number] CC:
[2016-12-26 08:00] VITALS: BP 153/83
[2016-12-26] MEDS: Docusate 100mg cap ORAL SCH (09:00)
[2016-12-26] MEDS: Pericolace tab ORAL SCH (09:00)
[2016-12-26 12:45] VITALS: BP 155/78
[2016-12-26] MEDS ORDERED: NORCO 5-325 TA1 EACH ORAL ×2 (14:06)
--- NOTE | 2016-12-29 12:12 | Discharge Summary ---
Discharge Summary Hospital Course Date of Admission Dec 23, 2016 at 06:15 Date of Discharge Dec 26, 2016 at 14:32 Admitting Diagnosis DDD with spondylolisthesis L5 S1 Reason for Hospitalization: elective surgery HPI Cathi Baires is a 61 year old male who was admitted on Dec 23, 2016 at 06:15 for unstable spondylolisthesis L5 S1 with bilateral radiculopathy ( left greater than right) and elective surgery Procedures s/p 12/23 dr Sorin Pereira 1. Wide and radical anterior diskectomy and reduction of spondylolisthesis. 2. Placement of interbody fusion device (PEEK cage and BMP and Holmes Putty). 3. Anterior instrumentation L5-S1. 4. Use of fluoroscopy. 1. Posterior spinal fusion, L5-S1. 2. Instrumentation using pedicle screws, L5 and S1. 3. Use of local autograft for fusion. 4. Use of allograft Bacterin bone and Delisa putty. 5. Use of operating microscope. 6. Neurodiagnostic monitoring. 7. Left-sided hemilaminectomy and Vasquez resection, L5-S1. s/p 12/[address] Nitish Baires 1. Muscle-sparing anterior abdominal retroperitoneal approach for anterior lumbar interbody fusion. 2. Plastic closure repair of abdominal wound. Hospital Course s/p surgery initially IVF prophylactic abx s/p Abx Rx pain management pain specialist follows neurovascular intact PT eval and Rx fall precautions ambulated SCD for DVT prophylaxis IS at the bedside dressing intact, dry drain output monitored, drain dc prior to dc home by surgeon tolerated diet, voided freely stable for dc with outpatient follow up FINAL DIAGNOSIS DDD with L5S1 spondylolisthesis L5S1 instable spondylolisthesis with BLE Left more than R radiculopathy s/p L5S1 anterior and posterior fusion with L decompression ( 2 separate procedure) work related injury Discharge Medications Continued Medications: Hydrocodone Bit/Acetaminophen 5-325* ([place] 5-325*) 1 Each Tablet 1 TAB ORAL Q4H PRN for For Pain, #50 TAB 0 Refills Hydrocodone Bit/Acetaminophen 5-325* ([place] 5-325*) 1 Each Tablet 2 TAB ORAL Q4HR PRN for For Pain, #50 TAB 0 Refills Discharge Condition Upon Discharge: stable Discharge Disposition Patient was discharged to Home (01) Discharge Diagnoses: Discharge Instructions Discharge Instructions Special Instructions I have been assigned to complete a D/C Summary on this account. I was not involved in the patient management Tianna Correia NP ([place]) Dec 29, 2016 12:12
== END 2016-12-26 14:32 | disposition home or self-care (01) | DRG 455 ==
LOC: SDSOVERFLO 06:15 → 3E 16:33
PROC: 0SG30A0 Fusion of Lumbosacral Joint with Interbody Fusion Device, Anterior Approach, Anterior Column, Open Approach (ICD-10-PCS; principal; 2016-12-23 08:00)
PROC: 0ST40ZZ Resection of Lumbosacral Disc, Open Approach (ICD-10-PCS; principal; 2016-12-23 08:00)
PROC: 0SG30K1 Fusion of Lumbosacral Joint with Nonautologous Tissue Substitute, Posterior Approach, Posterior Column, Open Approach (ICD-10-PCS; principal; 2016-12-23 08:00)
PROC: 01NB0ZZ Release Lumbar Nerve, Open Approach (ICD-10-PCS; principal; 2016-12-23 08:00)
DX: M51.17 Intervertebral disc disorders with radiculopathy, lumbosacral region (principal); Q05.9 Spina bifida, unspecified; M43.17 Spondylolisthesis, lumbosacral region; E11.9 Type 2 diabetes mellitus without complications
CPT/HCPCS: 36415; 72020; 76001; 82962; 85025; 86850; 86900; 86901; 87081; 94003; 94150; 94760; C9399; J2180; J2250; J2405